=== PATIENT | male | born 1980 | race American Indian/Alaskan Native ===

== ENCOUNTER 2017-11-12 12:24 | Emergency (ER) | payer OTHER ==
[2017-11-12 12:24] VITALS: BMI 21.7
[2017-11-12 12:39] VITALS: BP 113/78; TEMP 98
[2017-11-12 13:15] LABS: RBC URINE 1 /hpf (0-3); URINE BILIRUBIN NEGATIVE (NEGATIVE); URINE BLOOD NEGATIVE (NEGATIVE); URINE COLOR Yellow (YELLOW); URINE GLUCOSE (UA) NORMAL (Normal); URINE KETONE NEGATIVE (NEGATIVE); URINE LEUKOCYTE ESTERASE TRACE Leu/uL (Negative); URINE PROTEIN NEGATIVE (NEGATIVE); URINE UROBILINOGEN NORMAL mg/dL (0.2-1.0); WBC URINE 8 /hpf (0-5)
[2017-11-12] MEDS ORDERED: cefTRIAXone (Rocephin) 250 mg Inj IM STA (13:16)
--- NOTE | 2017-11-12 13:35 | C.PDOC ---
History Of Present Illness Ga Acosta is a 37 y/o male complaining of 3 day history of dysuria with mild frequency, but no urgency. Denies any associated penile discharge, genital lesions, or testicular pain/swelling. No abdominal pain, back pain, nausea, vomiting, fever, or chills. Pt reports he was the recipient of unprotected oral sex recently. Time Seen by Provider: 11/12/17 12:45 Chief Complaint (Nursing): Male Genitourinary History Per: Patient History/Exam Limitations: no limitations Onset/Duration Of Symptoms: Days (x 3) Current Symptoms Are (Timing): Still Present Past Medical History Reviewed: Historical Data, Nursing Documentation, Vital Signs Vital Signs: Last Vital Signs Temp 98 F 11/12/17 12:37 Pulse 79 11/12/17 12:37 Resp 18 11/12/17 12:37 BP 113/78 11/12/17 12:37 Pulse Ox 98 11/12/17 13:38 - Medical History PMH: Kidney Stones, Chronic Kidney Disease Family History: States: Unknown Family Hx - Social History Hx Tobacco Use: No Hx Alcohol Use: No Hx Substance Use: No - Immunization History Hx Tetanus Toxoid Vaccination: No Hx Influenza Vaccination: No Hx Pneumococcal Vaccination: No Review Of Systems Constitutional: Negative for: Fever, Chills Gastrointestinal: Negative for: Nausea, Vomiting, Abdominal Pain Genitourinary: Positive for: Dysuria, Frequency. Negative for: Penile Discharge , Scrotal Pain (or swelling), Rash, Other (urgency) Musculoskeletal: Negative for: Back Pain Physical Exam - Physical Exam Appears: Non-toxic, No Acute Distress Skin: Normal Color, Warm, Dry Head: Atraumatic, Normacephalic Eye(s): bilateral: Normal Inspection, PERRL, EOMI Oral Mucosa: Moist Neck: Normal ROM, Supple Cardiovascular: Rhythm Regular, No Murmur Respiratory: Normal Breath Sounds, No Accessory Muscle Use Gastrointestinal/Abdominal: Normal Exam, Soft, No Tenderness, No Distention Extremity: Normal ROM, No Deformity Neurological/Psych: Oriented x3, Normal Speech, No Other (focal deficits) ED Course And Treatment O2 Sat by Pulse Oximetry: 98 (RA) Pulse Ox Interpretation: Normal Medical Decision Making Medical Decision Making: Initial Plan: Urinalysis Urine culture Chlamydia/GC RNA, TMA Pt given Zithromax PO and Rocephin IM 152 pm pt with dysuria, ua with 8 wbc; treated for gc/chlamydia. will d/c. Safe sex practices discussed with patient. Disposition Counseled Patient/Family Regarding: Diagnosis, Need For Followup - Disposition Disposition: HOME/ ROUTINE Disposition Time: 13:53 Condition: STABLE Additional Instructions: Recommend safe sex at all times. You were treated for gonorrhea and chlamydia. Recommend outpatient re-testing in next week or so with your PMD or in medical clinic. Return to ER for any worse symptoms. Instructions: Nonspecific Urethritis in Men (ED), Dysuria (ED) Forms: [employer] (Yakut), General Discharge Instructions - Clinical Impression Clinical Impression: Urethritis, nonspecific - PA / MANAGER CHEMISTRY / Resident Statement MD/DO has reviewed & agrees with the documentation as recorded. - Scribe Statement The provider has reviewed the documentation as recorded by the Scribe (Brittany Stout) All medical record entries made by the Scribe were at my direction and personally dictated by me. I have reviewed the chart and agree that the record accurately reflects my personal performance of the history, physical exam, medical decision making, and the department course for this patient. I have also personally directed, reviewed, and agree with the discharge instructions and disposition.
[2017-11-12 14:08] VITALS: PULSE 70; RESP 16
[2017-11-12 22:25] VITALS: O2SAT 98
== END 2017-11-12 14:07 | disposition home or self-care (01) ==
LOC: C.ER 12:24
DX: N34.2 Other urethritis (principal)
CPT/HCPCS: 81001; 87086; 87491; 87591; 96372; 99284; J0696

== ENCOUNTER 2019-04-06 11:49 | Emergency (ER) | payer OTHER ==
[2019-04-06 11:49] VITALS: BMI 21.7
[2019-04-06 12:03] VITALS: BP 137/83; PULSE 109; RESP 18; TEMP 98.4; O2SAT 98
[2019-04-06 12:33] LABS: SQUAMOUS EPITHIAL < 1 /hpf (0-5); URINE BILIRUBIN NEGATIVE (NEGATIVE); URINE BLOOD NEGATIVE (NEGATIVE); URINE CLARITY Clear (Clear); URINE COLOR Yellow (YELLOW); URINE GLUCOSE (UA) NORMAL (Normal); URINE LEUKOCYTE ESTERASE NEG Leu/uL (Negative); URINE PROTEIN NEGATIVE (NEGATIVE); URINE UROBILINOGEN NORMAL mg/dL (0.2-1.0)
--- NOTE | 2019-04-06 12:41 | C.PDOC ---
History Of Present Illness 38 y/o male c/o feeling something/mass in head of penis for last week that hasn't changed in size. denies dysuria, abdominal pain, penile discharge. denies teste or scrotal pain. Time Seen by Provider: 04/06/19 12:01 Chief Complaint (Nursing): Male Genitourinary Past Medical History Vital Signs: Last Vital Signs Temp 98.4 F 04/06/19 12:01 Pulse 109 H 04/06/19 12:01 Resp 18 04/06/19 12:01 BP 137/83 04/06/19 12:01 Pulse Ox 98 04/06/19 12:01 Primary Care Provider: Non [facility] Provider, - Medical History PMH: Kidney Stones, Chronic Kidney Disease Family History: States: Unknown Family Hx - Social History Hx Tobacco Use: No Hx Alcohol Use: No Hx Substance Use: No - Immunization History Hx Tetanus Toxoid Vaccination: No Hx Influenza Vaccination: No Hx Pneumococcal Vaccination: No Physical Exam - Physical Exam Appears: Non-toxic, No Acute Distress Skin: Warm, Dry Male Genital: Normal Inspection, No Testicular Tenderness, No Testicular Swelling, No Inguinal Tenderness, No Inguinal Swelling, No Scrotal Swelling, Circumcised, Other (pea sized mass felt distal to urethral meatus, no swelling. erythema., redness noted to head of penis. no discharge noted at meatus. no lesions or rash noted. chaperoned during exam by bandar Bryant. ) Neurological/Psych: Oriented x3, Normal Speech, Normal Cognition ED Course And Treatment - Laboratory Results Lab Results: Urine Color Yellow (YELLOW) 04/06/19 12:14 Urine Clarity Clear (Clear) 04/06/19 12:14 Urine pH 5.0 (5.0-8.0) 04/06/19 12:14 Ur Specific [place] 1.019 (1.003-1.030) 04/06/19 12:14 Urine Protein Negative mg/dL (NEGATIVE) 04/06/19 12:14 Urine Glucose (UA) Normal mg/dL (Normal) 04/06/19 12:14 Urine Ketones Negative mg/dL (NEGATIVE) 04/06/19 12:14 Urine Blood Negative (NEGATIVE) 04/06/19 12:14 Urine Nitrate Negative (NEGATIVE) 04/06/19 12:14 Urine Bilirubin Negative (NEGATIVE) 04/06/19 12:14 Urine Urobilinogen Normal mg/dL (0.2-1.0) 04/06/19 12:14 Ur Leukocyte Esterase Neg Edmar/uL (Negative) 04/06/19 12:14 Urine WBC (Auto) 1 /hpf (0-5) 04/06/19 12:14 Urine RBC (Auto) < 1 /hpf (0-3) 04/06/19 12:14 Ur Squamous Epith Cells < 1 /hpf (0-5) 04/06/19 12:14 O2 Sat by Pulse Oximetry: 98 Medical Decision Making Medical Decision Making: chaperoned by BANDAR Bryant discussed with patient that diagnosis in ED may not be possible;will be referred to urology for further evaluation. Disposition Counseled Patient/Family Regarding: Studies Performed, Diagnosis, Need For Followup - Disposition Referrals: [facility] [Outside] [facility] [Outside] [facility] [Outside] Mayito Magallon MD [Staff Provider] - Disposition: HOME/ ROUTINE Disposition Time: 12:44 Condition: GOOD Additional Instructions: Please follow up with your doctor at [facility] or call [facility] or Dr Magallon to urology appointment for further urological evaluation. Return to ER for enlarging mass, difficulty urinating. abodminal pain. fever or any other concerning symptoms. Forms: [employer] (Indonesian), General Discharge Instructions - Clinical Impression Clinical Impression: Penile mass
== END 2019-04-06 12:56 | disposition home or self-care (01) ==
LOC: C.ER 11:49
DX: N48.89 Other specified disorders of penis (principal); N18.9 Chronic kidney disease, unspecified; Z87.442 Personal history of urinary calculi

== ENCOUNTER 2019-04-18 09:38 | Emergency (ER) | payer OTHER ==
[2019-04-18 09:51] VITALS: BMI 23.6
--- NOTE | 2019-04-18 09:54 | C.PDOC ---
History Of Present Illness 39 y/o male presents to ED stating he had 2 episodes of brownish discharge in his urine 2 days ago but no pain. He also noted one episode of hematuria. He denies any hematuria now. Currently denies any dysuria and notes frequent urination and previous pain to his lower back. Denies any hx of IVDU, and denies any enuresis, encoparesis or loss of sensation in his legs. No trauma or fall. No DM2. No increased PO intake. Reports he has history of kidney stones and notes his back pain was similiar to his kidney stone pain before he had the discharge. He denies any recent unprotected sex. Denies dysuria, fever, chills, abdominal pain, diffuse body aches or other complaints. Time Seen by Provider: 04/18/19 09:54 Chief Complaint (Nursing): Male Genitourinary History Per: Patient History/Exam Limitations: no limitations Onset/Duration Of Symptoms: Days Current Symptoms Are (Timing): Still Present Past Medical History Reviewed: Historical Data, Nursing Documentation, Vital Signs Vital Signs: Last Vital Signs Temp 98.2 F 04/18/19 09:51 Pulse 83 04/18/19 09:51 Resp 18 04/18/19 09:51 BP 140/91 H 04/18/19 09:51 Pulse Ox 98 04/18/19 09:51 Primary Care Provider: FAMILY PROVIDER,NO - Medical History PMH: Kidney Stones, Chronic Kidney Disease Family History: States: No Known Family Hx - Social History Hx Tobacco Use: No Hx Alcohol Use: No Hx Substance Use: No - Immunization History Hx Tetanus Toxoid Vaccination: No Hx Influenza Vaccination: No Hx Pneumococcal Vaccination: No Review Of Systems Constitutional: Negative for: Fever, Chills, Weakness, Malaise Eyes: Negative for: Pain, Vision Change, Eyelid Inflammation ENT: Negative for: Ear Pain, Ear Discharge, Mouth Pain, Mouth Swelling, Throat Pain, Throat Swelling Cardiovascular: Negative for: Chest Pain, Palpitations, Orthopnea, Edema Respiratory: Negative for: Cough, Shortness of Breath, Hemoptysis, SOB with Excertion, Wheezing Gastrointestinal: Positive for: Other (no fullness to abdomen or lower back). Negative for: Nausea, Vomiting, Abdominal Pain, Diarrhea, Constipation, Melena, Hematochezia, Hematemesis, Rectal Pain Genitourinary: Positive for: Frequency, Hematuria, Penile Discharge. Negative for: Dysuria, Incontinence, Scrotal Pain, Rash, Penile Pain Musculoskeletal: Positive for: Back Pain (lower back). Negative for: Neck Pain, Shoulder Pain, Arm Pain, Hand Pain, Leg Pain, Foot Pain Skin: Negative for: Rash Neurological: Negative for: Weakness, Numbness, Altered Mental Status, Headache Psych: Negative for: Anxiety, Depression, Psychosis Physical Exam - Physical Exam Appears: Well, Non-toxic, No Acute Distress Skin: Warm, Dry, No Rash, No Jaundice Head: Atraumatic, Normacephalic, No Tenderness, No Swelling, No Abrasion, No Laceration Eye(s): bilateral: Normal Inspection, PERRL, EOMI Nose: Normal, No Flaring, No Discharge, No Epistaxis, No Septal Hematoma Oral Mucosa: Moist Tongue: Normal Appearing Lips: Normal Appearing Throat: Normal, No Erythema, No Exudate Neck: Normal, Normal ROM, Trachea Midline, No Midline Cervical Tenderness, No Paracervical Tenderness, Supple, Other (no meningeal signs) Chest: Symmetrical Cardiovascular: Rhythm Regular, No Murmur Respiratory: Normal Breath Sounds, No Rales, No Rhonchi, No Wheezing Gastrointestinal/Abdominal: Soft, No Tenderness, No Guarding, No Rebound, Other (no flank or suprapubic tenderness) Back: No CVA Tenderness, No Vertebral Tenderness, No Decreased ROM, No Muscle Spasm, Paraspinal Tenderness (b/l) Male Genital: Normal Inspection, No Testicular Tenderness, No Testicular Swelling, No Inguinal Tenderness, No Inguinal Swelling, No Scrotal Swelling, Other (no rash or expressible d/c. non-ttp) Extremity: Normal ROM, No Swelling Extremity: Bilateral: Atraumatic, Normal ROM Neurological/Psych: Oriented x3, Normal Speech, Normal Cognition Gait: Steady ED Course And Treatment O2 Sat by Pulse Oximetry: 98 (RA) Pulse Ox Interpretation: Normal Medical Decision Making Medical Decision Makin39 y/o male presents to ED stating he had 2 episodes of brownish discharge in his urine 2 days ago but no pain. No body aches or CVAT or midline pain. No hx of IVDU or rash noted to back. Walking well w/ stable steady gait w/ out enuresis / encoparesis or saddle anesthesia. Pt denies any recent sex w/ in 6+ m onths, uses condoms during sex. Denies coming in for STD workup. No yellow discharge. Pt likely passed kidney stone. Plan: --Chlamydia/GC Test --Tylenol --Urinaylsis 1116 remains w/ out midline tenderness, no CVAT No back pain at this time. pt endorses he did not come in again for STD test or treatment, given overall clinical picture pt likely passed kidney stone. no lesions noted to testicular / penile exam. given increased urination will have pt f/u with urology and rx with antibiotics. pt agreeable to plan Disposition - Disposition Referrals: Mayito Magallon MD [Staff Provider] - [facility] [Outside] [facility] [Outside] [facility] [Outside] Disposition: HOME/ ROUTINE Disposition Time: 11:15 Condition: STABLE Additional Instructions: TANJA EUGENE, thank you for letting us take care of you today. Your provider was Ta West and you were treated for BACK PAIN/GROIN PAIN. The emergency medical care you received today was directed at your acute symptoms. If you were prescribed any medication, please fill it and take as directed. It may take several days for your symptoms to resolve. Return to the Emergency Department if your symptoms worsen, do not improve, or if you have any other problems. Please contact your doctor or call one of the physicians/clinics you have been referred to that are listed on the Patient Visit Information form that is included in your discharge packet. Bring any paperwork you were given at discharge with you along with any medications you are taking to your follow up visit. Our treatment cannot replace ongoing medical care by a primary care provider outside of the emergency department. Thank you for allowing the [facility] team to be part of your care today. If you had an X-Ray or CT scan: A Radiologist will review the ED reading if any change in treatment is needed we will contact you. If you had a blood, urine, or wound culture: It will take several days for the results, if any change in treatment is needed we will contact you. If you had an STI test: It will take 48 hours for the results. Please call after 1 week if you have not heard back. Prescriptions: Ciprofloxacin [Cipro] 500 mg PO BID 14 Days #28 tab Instructions: Urinary Tract Infection, Adult (DC), Blood in the Urine (Hematuria), Adult (DC) Forms: [employer] (Japanese) - Clinical Impression Clinical Impression: UTI (urinary tract infection), Hematuria - Scribe Statement The provider has reviewed the documentation as recorded by the Saimaiblázaro Olson Provider Attestation: All medical record entries made by the Saimaibe were at my direction and personally dictated by me. I have reviewed the chart and agree that the record accurately reflects my personal performance of the history, physical exam, medical decision making, and the department course for this patient. I have also personally directed, reviewed, and agree with the discharge instructions and disposition.
[2019-04-18 09:56] VITALS: BP 140/91; PULSE 83; RESP 18; TEMP 98.2; O2SAT 98
[2019-04-18 10:21] LABS: URINE BACTERIA RARE (<OCC); URINE BILIRUBIN NEGATIVE (NEGATIVE); URINE BLOOD 1+ (NEGATIVE); URINE CLARITY Clear (Clear); URINE COLOR Straw (YELLOW); URINE GLUCOSE (UA) NORMAL (Normal); URINE LEUKOCYTE ESTERASE NEG Leu/uL (Negative); URINE PROTEIN NEGATIVE (NEGATIVE); URINE UROBILINOGEN NORMAL mg/dL (0.2-1.0)
== END 2019-04-18 11:26 | disposition home or self-care (01) ==
LOC: C.ER 09:38
DX: N39.0 Urinary tract infection, site not specified (principal); R31.9 Hematuria, unspecified; N18.9 Chronic kidney disease, unspecified